=== PATIENT | male | born 1975 | race Two or more races ===

== ENCOUNTER 2021-10-20 12:27 | Inpatient (IN) | payer OTHER ==
[~2021-10-20] VITALS: Ht 172.7 cm; Wt 71.9 kg
[2021-10-20] VITALS (7 sets, daily range): BP systolic 108–143; BP diastolic 69–84
--- NOTE | 2021-10-20 12:32 | NUR ---
[id number] FOR NEW ONSET HYPERGLYCEMIA BG 537 IN FIELD. PLACED ON BED, CHANGED TO GOWN, AAOX4, COMPLAINS OF WEAKNESS
--- NOTE | 2021-10-20 12:33 | NUR ---
AT BED SIDE
--- NOTE | 2021-10-20 12:34 | NUR ---
BS - 555 mm/dl - will notify Dr. Grady
--- NOTE | 2021-10-20 12:55 | NUR ---
DIETARY SERVICE AIDE AT BED SIDE
[2021-10-20] MEDS ORDERED: IV NS 0.9% 1,000 ML BAG IV ONE ×2 (13:00→14:30)
--- NOTE | 2021-10-20 13:10 | NUR ---
SWAB FOR COVID19 SENT TO LAB
[2021-10-20 13:36] LABS: BILIRUBIN,URINE NEGATIVE (NEGATIVE); COLOR,URINE YELLOW (YELLOW); LEUKOCYTE ESTERASE ,URINE NEGATIVE (NEGATIVE); NITRITE, URINE NEGATIVE (NEGATIVE); PH,URINE 5.5 (5.0-8.0); PROTEIN,URINE NEGATIVE (NEGATIVE); UGLUCOSE >=1000 mg/dL (NEGATIVE); UROBILINOGEN,URINE 0.2 EU/dL (0.2)
[2021-10-20 13:52] LABS: ALBUMIN 3.3 g/dL (3.4-5.0); BILIRUBIN,DIRECT 0.2 mg/dL (0.0-0.2); BILIRUBIN,TOTAL 0.9 mg/dL (0.2-1.0); CALCIUM, SERUM 9.1 mg/dL (8.5-10.1); CREATININE 1.2 mg/dL (0.6-1.3); TOTAL PROTEIN, SERUM 8.7 g/dL (6.4-8.2)
[2021-10-20 13:55] LABS: BASOPHILS % (AUTO) 0.3 % (0.0-2.0); EOSINOPHILS % (AUTO) 0.2 % (0.0-6.0); HEMATOCRIT 45 % (39-51); HEMOGLOBIN 14.7 g/dL (13.5-17.5); LYMPHOCYTES % (AUTO) 5.2 % (20.0-44.0); MEAN CORPUSCULAR HGB CONC 33 g/dl (31.0-36.0); MEAN CORPUSCULAR VOLUME 90 fL (80-96); MONOCYTES # (AUTO) 1.1 K/uL (0.1-1.30); MONOCYTES % (AUTO) 5.9 % (2.0-12.0); NEUTROPHILS # (AUTO) 16.4 K/uL (1.8-8.9); NEUTROPHILS % (AUTO) 88.4 % (43.0-81.0); PLATELET COUNT (AUTO) 300 K/uL (150-450); RED BLOOD CELL COUNT(AUTO) 4.99 MIL/uL (4.5-6.0); WHITE BLOOD COUNT (AUTO) 18.6 K/uL (4.3-11.0)
[2021-10-20] MEDS ORDERED: PARO10TA4 PO (14:28)
[2021-10-20] MEDS ORDERED: INSULIN REGULAR, HUMAN 100 UNIT/ML 10 ML VIAL ONE (14:29)
[2021-10-20] MEDS ORDERED: INSULIN REGULAR, HUMAN 100 UNITS in IV NS 0.9% 100 ML IV PRN ×2 (14:30)
[2021-10-20] MEDS ORDERED: INSULIN REGULAR, HUMAN 100 UNIT/ML 10 ML VIAL IV ONE (14:30)
--- NOTE | 2021-10-20 14:39 | NUR ---
ICU 253
--- NOTE | 2021-10-20 14:50 | NUR ---
[facility] FOR [facility] [phone] X [phone]
[2021-10-20] MEDS ORDERED: IV NS 0.9% 1,000 ML IV PRN (15:00)
[2021-10-20] MEDS ORDERED: Calcium Gluconate 1GM/10ML 9.3 MEQ in IV D5W 250 ML IV ONE (15:00)
[2021-10-20 15:05] LABS: BACTERIA,URINE Few /HPF (None Seen); COARSE GRANULAR CASTS,URINE Few /LPF (None Seen); RBC,URINE 0-2 /HPF (0-2); SQUAMOUS EPITHELIAL CELL,UR Few /HPF (None Seen); WBC,URINE 0-2 /HPF (0-3)
[2021-10-20] MEDS ORDERED: MAGNESIUM HYDROXIDE 30 ML UDC PO PRN (15:30)
[2021-10-20] MEDS ORDERED: MAG HYDROX/AL HYDROX/SIMETH 30 ML UDC PO PRN (15:30)
[2021-10-20] MEDS ORDERED: Z GUARD REMEDY 4 OZ OINT TP PRN (15:30)
[2021-10-20] MEDS ORDERED: ONDANSETRON HCL/PF 4 MG/2 ML VIAL IVP PRN (15:30)
[2021-10-20] MEDS ORDERED: ACETAMINOPHEN 325 MG TABLET PO PRN (15:30)
--- NOTE | 2021-10-20 15:36 | NUR ---
REPORT GIVEN TO MITESH BERNAL - ICU, CONTINUE PLAN OF CARE. NOTE: INSULIN DRIP - CONTINUE DURING TRANSFER TO THE FLOOR AT 6 UNITS PER HOURS PIV # 20 JEANNIE, PORT # 1
[2021-10-20 15:39] LABS: CALCIUM, SERUM 8.5 mg/dL (8.5-10.1); CREATININE 1.2 mg/dL (0.6-1.3); MAGNESIUM 2.5 mg/dL (1.8-2.4); PHOSPHORUS 3.5 mg/dL (2.5-4.9); POTASSIUM 5.3 mmol/L (3.5-5.1)
--- NOTE | 2021-10-20 15:50 | NUR ---
ICU/RN PT ADMITTED FROM ER WITH HIGH BLOOD SUGAR ,DKA.ON INSULIN DRIP.PT IS AWAKE,ALERT,VERY WEAK .V/S STABLE,AFEBRILE.NO PAIN REPORTED AT THIS TIME.SKIN INTACT.IV FLUIDS STARTED ORDERED.DUE MEDS ARE GIVEN.CONTINUE MONITORING.
[2021-10-20] MEDS ORDERED: INSULIN REGULAR, HUMAN 100 UNIT in IV NS 0.9% 99 ML IV PRN ×2 (16:00)
[2021-10-20] MEDS: IV NS 0.9% 1,000 ML IV PRN ×2 (16:00→22:00)
[2021-10-20] MEDS ORDERED: Calcium Gluconate 1GM/10ML 9.3 MEQ in IV NS 0.9% 100 ML IV ONE (17:00)
[2021-10-20] MEDS: BLOOD SUGAR DIAGNOSTIC 1 EACH STRIP IN SCH ×7 (17:07→23:00)
--- NOTE | 2021-10-20 18:53 | NUR ---
RN NOTE PT RESTING IN BED, IN RA. NOT IN ANY DISTRESS. AWAKE ALERT AND RESPONSIVE. WITH IV ACCESS TO RAC AND LAC G18. IVF RUNNING NS @150ML/HR. ON INSULIN DRIP WITH RATE OF 5U/HR. BS @1800-255. NEEDS ATTENDED. SAFETY MAINTAINED. WILL CONTINUE TO MONITOR. PT URINATING WELL WITH 800 URINE OUTPUT.
[2021-10-20 22:54] LABS: CALCIUM, SERUM 8.8 mg/dL (8.5-10.1); CREATININE 0.9 mg/dL (0.6-1.3)
[2021-10-20 23:02] LABS: MAGNESIUM 2.3 mg/dL (1.8-2.4); PHOSPHORUS 2.7 mg/dL (2.5-4.9)
[2021-10-20] MEDS: IV D5/0.45 NACL 1,000 ML IV PRN (23:27)
--- NOTE | 2021-10-20 23:40 | NUR ---
ICU/RN: SPOKE WITH DR. COLE CHANGE IVF TO D51/2NS@100ML/HR.
[2021-10-21] VITALS (25 sets, daily range): BP systolic 108–150; BP diastolic 60–90
[2021-10-21 00:56] LABS: CALCIUM, SERUM 8.3 mg/dL (8.5-10.1); CREATININE 0.8 mg/dL (0.6-1.3); POTASSIUM 3.7 mmol/L (3.5-5.1)
[2021-10-21] MEDS: BLOOD SUGAR DIAGNOSTIC 1 EACH STRIP IN SCH ×11 (01:00→21:30)
--- NOTE | 2021-10-21 01:08 | NUR ---
ICU/RN: NEW ORDERS FROM DR. COLE START PT ON 20UNITS LANTUS NOW AND STOP INSULIN DRIP AFTER 2 HOURS. THEN BEGIN PT ON ACHS SLIDING SCALE MODERATE REGULAR INSULIN AND CCHO DIET. IF PT UNABLE TO TOLERATE DIET CHANGE ACCUCHECK TO Q4 HOURS.
[2021-10-21] MEDS ORDERED: *INSULIN REGULAR(HUMULIN R)HUM 100 UNIT/ML VIAL SQ PRN (01:30)
[2021-10-21] MEDS ORDERED: INSULIN GLARGINE, 100 UNIT/ML CARTRIDGE SQ ONE ×2 (01:30→02:40)
[2021-10-21] MEDS ORDERED: INSULIN REGULAR, HUMAN 100 UNIT/ML 3 ML VIAL SQ PRN (01:30)
[2021-10-21] MEDS ORDERED: DEXTROSE 50%-WATER 50 ML DISP.SYRIN IV PRN ×2 (01:30→16:30)
[2021-10-21] MEDS ORDERED: INSULIN REGULAR, HUMAN 100 UNIT/ML 3 ML VIAL ONE (02:40)
[2021-10-21] MEDS ORDERED: BLOOD SUGAR DIAGNOSTIC 1 EACH STRIP VI SCH (07:30)
--- NOTE | 2021-10-21 07:47 | NUR ---
RN OPENING NOTE RECEIVED PT IN BED A/O X4, ON RA SATING AT 99%. TELE MONITOR READS SR. IV ACCESS NOTED AT R AC 20G, AND L AC 20G. RUNNING D5 1/2 NS @ 100ML/HR. PT LAST BS 276 AT 0730. 6 UNITS OF INSULIN GIVEN. ALL SAFETY MEASURES IN PLACE, WILL CONTINUE TO MONITOR PT THROUGHOUT SHIFT.
[2021-10-21 07:48] LABS: BASOPHILS % (AUTO) 0.3 % (0.0-2.0); EOSINOPHILS % (AUTO) 1.7 % (0.0-6.0); HEMATOCRIT 35 % (39-51); HEMOGLOBIN 11.9 g/dL (13.5-17.5); LYMPHOCYTES # (AUTO) 1.7 K/uL (0.8-4.8); LYMPHOCYTES % (AUTO) 14.9 % (20.0-44.0); MEAN CORPUSCULAR HGB CONC 34 g/dl (31.0-36.0); MEAN CORPUSCULAR VOLUME 88 fL (80-96); MONOCYTES # (AUTO) 0.9 K/uL (0.1-1.30); MONOCYTES % (AUTO) 7.9 % (2.0-12.0); NEUTROPHILS # (AUTO) 8.5 K/uL (1.8-8.9); NEUTROPHILS % (AUTO) 75.2 % (43.0-81.0); PLATELET COUNT (AUTO) 178 K/uL (150-450); RED BLOOD CELL COUNT(AUTO) 4.01 MIL/uL (4.5-6.0); WHITE BLOOD COUNT (AUTO) 11.3 K/uL (4.3-11.0)
[2021-10-21 08:02] LABS: CALCIUM, SERUM 8.2 mg/dL (8.5-10.1); CREATININE 0.8 mg/dL (0.6-1.3); PHOSPHORUS 2.7 mg/dL (2.5-4.9)
[2021-10-21] MEDS: IV D5/0.45 NACL 1,000 ML IV PRN (09:27)
--- NOTE | 2021-10-21 09:52 | NUR ---
RN NOTE SPOKE TO DR. RAMIREZ, WILL RESTART INSULIN DRIP, ORDER BMP AND ACCU CHECK EVERY HOUR.
--- NOTE | 2021-10-21 09:53 | NUR ---
INSULIN DRIP RESTARTED, AWAITING PHARMACY.
[2021-10-21] MEDS ORDERED: INSULIN REGULAR, HUMAN 100 UNIT in IV NS 0.9% 99 ML IV PRN ×2 (10:00)
--- NOTE | 2021-10-21 10:00 | NUR ---
Insulin drip at 7U/hr
[2021-10-21 14:16] LABS: CALCIUM, SERUM 7.8 mg/dL (8.5-10.1); CREATININE 0.7 mg/dL (0.6-1.3); POTASSIUM 3.4 mmol/L (3.5-5.1)
[2021-10-21] MEDS ORDERED: Potassium Chloride 10 MEQ in IV D5/ 0.9% NACL 1,000 ML IV SCH (16:00)
[2021-10-21] MEDS: IV NS 0.9% 1,000 ML IV PRN (16:19)
[2021-10-21] MEDS ORDERED: POTASSIUM CHLORIDE 20 MEQ TAB.PRT.SR PO ONE (16:30)
[2021-10-21] MEDS: INSULIN REGULAR, HUMAN 100 UNIT/ML 3 ML VIAL SQ PRN ×2 (16:40→21:34)
--- NOTE | 2021-10-21 16:41 | NUR ---
Pt blood sugar 198, 3 units of regular insulin given.
--- NOTE | 2021-10-21 19:14 | NUR ---
RN CLOSING NOTE PT IS RESTING IN BED A/O X4, PT TOLERATED ALL TREATMENTS WELL. ALL NEEDS MET, ALL SAFETY MEASURES IN PLACE, BED IN LOWEST LOCKED POSITION, CALL LIGHT WITHIN REACH. ENDORSED TO MANAGER TRANSMISSION RN FOR TOM.
[2021-10-22] VITALS (12 sets, daily range): BP systolic 95–130; BP diastolic 52–74
[2021-10-22] MEDS: IV NS 0.9% 1,000 ML IV PRN ×2 (01:43→15:16)
--- NOTE | 2021-10-22 07:17 | NUR ---
RN OPENING NOTE PATIENT RECEIVED IN BED, AWAKE, A&OX4. PATIENT ON ROOM AIR WITH NO SIGNS OF LABORED BREATHING. SINUS RHYTHM ON BEDSIDE MONITOR. RIGHT AC 20G AND LEFT AC 20G IV IN PLACE RUNNING NS AT 100CC/HR. NO SIGNS OF ACUTE DISTRESS NOTED AT THIS TIME. BED LOCKED AND IN LOWEST POSITION, CALL LIGHT WITHIN REACH, 2 SIDE RAILS UP.
[2021-10-22] MEDS: BLOOD SUGAR DIAGNOSTIC 1 EACH STRIP IN SCH ×4 (07:28→21:57)
[2021-10-22] MEDS: INSULIN REGULAR, HUMAN 100 UNIT/ML 3 ML VIAL SQ PRN ×2 (07:31→22:05)
[2021-10-22 08:42] LABS: BASOPHILS % (AUTO) 0.5 % (0.0-2.0); EOSINOPHILS % (AUTO) 0.6 % (0.0-6.0); HEMATOCRIT 34 % (39-51); HEMOGLOBIN 11.5 g/dL (13.5-17.5); MEAN CORPUSCULAR HGB CONC 34 g/dl (31.0-36.0); MEAN CORPUSCULAR VOLUME 88 fL (80-96); MONOCYTES # (AUTO) 0.9 K/uL (0.1-1.30); MONOCYTES % (AUTO) 9.7 % (2.0-12.0); NEUTROPHILS # (AUTO) 6.1 K/uL (1.8-8.9); NEUTROPHILS % (AUTO) 67.2 % (43.0-81.0); PLATELET COUNT (AUTO) 178 K/uL (150-450); RED BLOOD CELL COUNT(AUTO) 3.83 MIL/uL (4.5-6.0); WHITE BLOOD COUNT (AUTO) 9.1 K/uL (4.3-11.0)
[2021-10-22] MEDS: METFORMIN 500 MG TABLET PO SCH ×2 (08:45→17:23)
--- NOTE | 2021-10-22 09:15 | NUR ---
RN NOTE PATIENT TRANSFERRED TO ROOM 314-1. REPORT GIVEN TO RENETTA BERNAL AT BEDSIDE. PATIENT STABLE THROUGHOUT TRANSFER ON ROOM AIR.
[2021-10-22 09:54] LABS: CALCIUM, SERUM 8.3 mg/dL (8.5-10.1); CREATININE 0.7 mg/dL (0.6-1.3); MAGNESIUM 1.9 mg/dL (1.8-2.4); PHOSPHORUS 2.4 mg/dL (2.5-4.9); POTASSIUM 3.2 mmol/L (3.5-5.1)
[2021-10-22] MEDS: POTASSIUM CHLORIDE 20 MEQ TAB.PRT.SR PO SCH ×3 (12:30→13:37)
[2021-10-22] MEDS ORDERED: K PHOS NEUTRAL 250 MG TABLET PO ONE (17:00)
--- NOTE | 2021-10-22 17:56 | NUR ---
MS RN NOTE PATIENT HEALTH TEACHING DONE REGARDING DIET AND DIETARY RESTRICTIONS. PATIENT VERBALIZED UNDERSTANDING AND APPRECIATION BUT LATER ON WAS ASKING IF HE CAN GET A HOTDOG SANDWICH. PATIENT FOR DIETARY CONSULT FOR FURTHER DIETARY EDUCATION. ENDORSED ACCORDINGLY.
--- NOTE | 2021-10-22 19:15 | NUR ---
MS RN OPENING NOTES RECEIVED PATIENT IN BED; AWAKE, ALERT AND ORIENTED X4. BREATHING IS EVEN AND NONLABORED. NOT IN ANY FORM OF RESPIRATORY DISTRESS. ON ROOM AIR, WELL TOLERATED. DENIES ANY PAIN OR DISCOMFORT OF THIS TIME. WITH IV ACCESS ON RIGHT ANTECUBITAL G#20; PATENT, INTACT AND SALINE LOCKED AND ON LEFT ANTECUBITAL G#20 INFUSING WITH NS 1L REGULATED AT 100 CC/HR; PATENT, INTACT AND FLUSHES WELL. ABLE TO MAKE NEEDS KNOWN. SAFETY MEASURES IMPLEMENTED: CALL BUTTON AND TABLE WITHIN EASY REACH, SIDE RAILS UP X2, BED IN LOWEST LOCKED POSITION. WILL CONTINUE TO MONITOR.
--- NOTE | 2021-10-22 19:37 | NUR ---
RN CLOSING NOTE PATIENT IN BED, AWAKE, A&OX4. PATIENT ON ROOM AIR WITH NO SIGNS OF LABORED BREATHING. SINUS RHYTHM ON BEDSIDE MONITOR. RIGHT AC 20G AND LEFT AC 20G IV IN PLACE RUNNING NS AT 100CC/HR. NO SIGNS OF ACUTE DISTRESS NOTED AT THIS TIME. BED LOCKED AND IN LOWEST POSITION, CALL LIGHT WITHIN REACH, 2 SIDE RAILS UP. ENDORSED TO NEXT SHIFT FOR CONTINUITY OF CARE.
--- NOTE | 2021-10-22 21:57 | NUR ---
MS RN NOTES BLOOD SUGAR CHECKED AND RECORDED WITH RESULT OF 252 MG/DL; 6 UNITS OF REGULAR INSULIN GIVEN SQ ORDERED PER SLIDING SCALE.
[2021-10-23] MEDS: BLOOD SUGAR DIAGNOSTIC 1 EACH STRIP IN SCH ×2 (06:21→11:41)
[2021-10-23] MEDS: INSULIN REGULAR, HUMAN 100 UNIT/ML 3 ML VIAL SQ PRN ×2 (06:23→12:23)
[2021-10-23 06:33] LABS: CALCIUM, SERUM 8.3 mg/dL (8.5-10.1); CREATININE 0.5 mg/dL (0.6-1.3); PHOSPHORUS 3.1 mg/dL (2.5-4.9); POTASSIUM 3.2 mmol/L (3.5-5.1)
--- NOTE | 2021-10-23 06:48 | NUR ---
MS RN CLOSING NOTES PATIENT IN BED RESTING COMFORTABLY, A/OX4. DUE MEDS GIVEN. ALL NEEDS MET. SAFETY MEASURES IN PLACE. ENDORSED TO MORNING SHIFT FOR TOM.
--- NOTE | 2021-10-23 07:30 | NUR ---
MS RN OPENING NOTES RECEIVED PATIENT ON BED, AWAKE AND A/O X4. ON ROOM AIR TOLERATING WELL. NO SOB NOTED. NOT IN DISTRESS. WITH NO COMPLAINTS OF PAIN OR DISCOMFORT AT THIS TIME. WITH IV ACCESS AT THE RIGHT AC G20, SALINE LOCKED AND AT THE LEFT AC G20 WITH IVF NS AT 100ML/HR INFUSING WELL. SAFETY MEASURES IN PLACED, CALL LIGHT WITHIN REACH. BED ON LOWEST LOCKED POSITION, SIDE RAILS UP X2. WILL CONTINUE TO MONITOR.
[2021-10-23] MEDS: METFORMIN 500 MG TABLET PO SCH (08:41)
[2021-10-23 08:47] VITALS: BP 106/64
[2021-10-23 10:00] VITALS: BP 106/64
[2021-10-23] MEDS ORDERED: METF-440 PO (10:29)
[2021-10-23] MEDS: POTASSIUM CHLORIDE 20 MEQ TAB.PRT.SR PO SCH ×2 (11:41→13:27)
--- NOTE | 2021-10-23 15:20 | NUR ---
ADMISSIONS RN NOTES PATIENT WAS SEEN BY DR. RAMIREZ AND ORDERED PATIENT FOR DISCHARGE TO HOME. DISCHARGE INSTRUCTION AND EDUCATION PROVIDED TO THE PATIENT AND EXPLAINED MEDICATIONS AND PRESCRIPTIONS. PATIENT VERBALIZED UNDERSTANDING. DISCHARGE FORM AND BELONGINGS LIST FORM SIGNED BY PATIENT. NAME WRIST BAND AND IV LINE REMOVED. ACCOMPANIED PATIENT TO THE LOBBY VIA WHEELCHAIR IN STABLE CONDITION. PATIENT WAS PICKED UP BY VIA PRIVATE CAR. MD AND CHARGE NURSE ARE AWARE OF THE DISCHARGE.
== END 2021-10-23 15:20 | disposition home or self-care (01) | DRG 420 ==
LOC: ER 12:34 → ICU 14:54 → MED 10-22 09:18
PROVIDERS: ADMIT Internal Medicine; ATTEND Internal Medicine
DX: E11.10 Type 2 diabetes mellitus with ketoacidosis without coma (principal); R65.10 Systemic inflammatory response syndrome (SIRS) of non-infectious origin without acute organ dysfunction; E87.1 Hypo-osmolality and hyponatremia; E87.5 Hyperkalemia; Z79.899 Other long term (current) drug therapy; E86.1 Hypovolemia; D72.829 Elevated white blood cell count, unspecified; E87.6 Hypokalemia; E87.70 Fluid overload, unspecified; F41.9 Anxiety disorder, unspecified
CPT/HCPCS: 36415; 71045-TC; 76770-TC; 76870-TC; 80048-TC; 80076-TC; 81001; 82010-TC; 82962-TC; 83690-TC; 83735-TC; 84100-TC; 84484-TC; 85025-TC; G0378; J0610; J1815; J3480; J3490; J7030; J7042; J7060